=== PATIENT | female | born 1965 | race Caucasian/White ===

== ENCOUNTER 2025-03-23 12:35 | Emergency (ER) | payer OTHER ==
[2025-03-23 13:11] VITALS: BP 115/81; PULSE 60; RESP 18; TEMP 97.6; O2SAT 100
--- NOTE | 2025-03-23 13:18 | ERPHSYRPT ---
- History of Present Illness Time Seen by Provider: 03/23/25 13:00 Source: patient Physician History: Patient comes to the emergency room due to cough with clear sputum along with fullness in the ears and also having congestion going on for the past couple weeks. Patient says that she feels like her cough is getting worse and it has been going on for over a couple weeks which got her concerned patient is a smoker.Denies any fever chills no chest pain Timing/Duration: week(s) Cough Quality/Degree: mild Possible Cause: no prior episodes Associated Symptoms: cough, earache, shortness of breath Allergies/Adverse Reactions: cephalexin [From Keflex] Allergy (Verified 03/23/25 13:07) codeine Allergy (Verified 03/23/25 13:07) Penicillins Allergy (Verified 03/23/25 13:07) Sulfa (Sulfonamide Antibiotics) Allergy (Verified 03/23/25 13:07) - Review of Systems Constitutional: No Fever, No Chills Eyes: No Symptoms Ears, Nose, & Throat: Ear Pain, Nose Congestion, No Ear Discharge Respiratory: Cough Cardiac: No Symptoms Abdominal/Gastrointestinal: No Symptoms Neurological: No Dizziness, No Focal Weakness, No Sensory Changes - Nursing Vital Signs Nursing Vital Signs: Initial Vital Signs Temperature 97.6 F 03/23/25 12:36 Pulse Rate 60 03/23/25 12:36 Respiratory Rate 18 03/23/25 12:36 Blood Pressure 115/81 03/23/25 12:36 O2 Sat by Pulse Oximetry 100 03/23/25 12:36 Pain Scale Pain Intensity 4 - Physical Exam General Appearance: no apparent distress Ears, Nose, Throat Exam: normal ENT inspection Neck Exam: normal inspection, non-tender, supple, full range of motion Respiratory Exam: normal breath sounds, lungs clear, No respiratory distress Cardiovascular Exam: regular rate/rhythm, normal heart sounds Neurologic Exam: alert, oriented x 3, cooperative, normal mood/affect, sensation nml, No motor deficits SpO2 Interpretation: normal SpO2: 100 O2 Delivery: Room Air - Progress Air Movement: good Progress Note: 03/23/25 13:17 Patient complains of cough Fullness in her ears along with a cough that is not producing sputum denies any fever chills based on physical exam I believe the patient is suffering from bronchitis because the patient has been suffering for a couple weeks now I will be starting the patient on a Z-Jakob. Patient at this time does not display any signs of pneumonia she is not hypoxic tachypneic is afebrile with no rales or crackles noted on exam. - Departure Departure Disposition: Home Clinical Impression: Bronchitis Condition: Good Critical Care Time: No Referrals: MARINA ROMERO MD [Primary Care Provider, [facility]] - Follow up/PCP as directed Instructions: Acute bronchitis in adults Prescriptions: Azithromycin 250 mg [Zithromax 250 MG TABLET] 250 mg PO ZPACK #6 tablet
== END 2025-03-23 13:35 | disposition home or self-care (01) ==
LOC: ED 12:35
DX: J40 Bronchitis, not specified as acute or chronic (principal); R05.1 Acute cough; H92.03 Otalgia, bilateral; Z79.899 Other long term (current) drug therapy